=== PATIENT | female | born 1970 | race Caucasian/White ===

== ENCOUNTER 2017-07-23 00:35 | Observation (INO) | payer BC ==
[2017-07-23] MEDS ORDERED: LORAZEPAM 0.5 MG TABLET PO ONE (01:00)
[2017-07-23] MEDS ORDERED: ASPIRIN 325 MG TABLET PO ONE (01:01)
--- NOTE | 2017-07-23 01:08 | Emergency Department Record ---
History of Present Illness - General Chief Complaint: Hypertension Stated Complaint: HIGH BP Time Seen by Provider: 07/23/17 00:44 Source: Patient Mode of Arrival: Ambulatory Limitations: No limitations - History of Present Illness Initial Comments: The patient is here due to not feeling well for a week or so. She has been weak and lightheaded off and on and has noticed her BP at home has been mildly elevated. She also feels like she has had blurred vision off and on and also now some mild chest pressure over the last 2 hours. The patient states she has had similar visual changes in the past and at times her vision does appear blurred and at times she is describing the vision as diplopia. The patient additionally has had a cough for a few days but denies any fever or chills. The chest pressure is mild and is not associated with any shortness of breath, or sweating. The patient does have cardiac risk factors of HTN, DMII, but no tobacco use. MD Complaint: Dizziness Onset/Timin -: Week(s) Description: Lightheadedness, Nausea History of Same: Yes History of Trauma: No Associated Symptoms: Chest pain, Other - Stanislaw Coma Scale Eye Response: (4) Open spontaneously Motor Response: (6) Obeys commands Verbal Response: (5) Oriented Stanislaw Total: 15 - Related Data Allergies Allergy/AdvReac Type Severity Reaction Status Date / Time No Known Allergies Allergy . Verified 07/23/17 00:42 Travel Screening - Travel/Exposure Within Last 30 Days Have you traveled within the last 30 days?: No - Travel Symptoms Symptom Screening: None Review of Systems Constitutional: Denies: Chills, Fever Eyes: Denies: Eye discharge ENT: Reports: Congestion Respiratory: Reports: Cough. Denies: Dyspnea Cardiovascular: Reports: Chest pain. Denies: Arrhythmia Past Medical History - SOCIAL HISTORY Smoking Status: Never smoker Alcohol Use: None Drug Use: None - RESPIRATORY Hx Respiratory Disorders: Yes Hx of CPAP: Yes (in process of checking on this) - CARDIOVASCULAR Hx Cardio Disorders: Yes Hx Hypertension: Yes Hx Palpitations: Yes Hx Pacemaker/Defib: Yes (d/t heart block) Comment:: high cholesterol - NEURO Hx Neuro Disorders: No - GI Hx GI Disorders: No - Hx Genitourinary Disorders: No - ENDOCRINE Hx Endocrine Disorders: Yes Hx Diabetes: Yes - MUSCULOSKELETAL Hx Musculoskeletal Disorders: No - PSYCH Hx Psych Problems: No - HEMATOLOGY/ONCOLOGY Hx Hematology/Oncology Disorders: No Family Medical History Any Significant Family History?: Yes Hx Diabetes: Mother, Grandparents Hx HTN: Mother, Grandparents Physical Exam - General General Appearance: Alert, Oriented x3, Cooperative, No acute distress - Head Head exam: Atraumatic, Normocephalic, Normal inspection - Eye Eye exam: Normal appearance, PERRL, EOMI. negative: Conjunctival injection, Nystagmus - ENT ENT exam: Normal exam, Mucous membranes moist, Normal external ear exam, Normal orophraynx, TM's normal bilaterally Throat exam: Normal inspection. negative: Tonsillar erythema, Tonsillar exudate - Neck Neck exam: Normal inspection, Full ROM. negative: Tenderness - Respiratory Respiratory exam: Normal lung sounds bilaterally, Chest wall tenderness (The L sided CP is very reproducible to palpation.). negative: Respiratory distress - Cardiovascular Cardiovascular Exam: Regular rate, Normal rhythm, Normal heart sounds - GI/Abdominal GI/Abdominal exam: Soft, Normal bowel sounds. negative: Tenderness - Extremities Extremities exam: Normal inspection, Full ROM, Normal capillary refill. negative: Tenderness Image of Full Body: 1 - Area of discomfort and tenderness. - Neurological Neurological exam: Alert, Normal gait (Neg for any balance issues.), Oriented X3 , Other (Neg Drift exam.). negative: Abnormal gait, Altered, Motor sensory deficit Course Vital Signs 07/23/17 00:41 Temperature 98 F Pulse Rate [ 115 H Pulse Ox Probe] Respiratory 20 Rate Blood Pressure 180/104 [Left Arm] Pulse Ox 99 - Reevaluation(s) Reevaluation #1: The patient is doing better. She is still having some chest discomfort which is very reproducible to palpation. Her BP is much improved. 07/23/17 01:56 Reevaluation #2: The patient is doing much better at this time. Her CP has pretty much resolved with the Toradol and she denies any SOB or KERRIE. She is still having the visual changes but denies any arm or leg weakness, numbness, trouble swallowing or speech difficulties. I did explain to her that I am not sure why she is having these issues so I did recommend hospital admission. The patient did agree to the plan. 07/23/17 02:30 Medical Decision Making - Data Complexity MDM Data: Labs Ordered and/or Reviewed, X-Ray Ordered and/or Reviewed, EKG Ordered and/or Reviewed - Lab Data Result diagrams: 07/23/17 01:00 07/23/17 01:00 - EKG Data -: EKG Interpreted by Me EKG: No Acute Changes (Sinus Tach at 103. Neg ST-T changes.) - Radiology Data Radiology results: Report reviewed (Head CT: Neg), Image reviewed (CXR: Neg.) Disposition Disposition: Admit Clinical Impression: Diplopia Chest pain Qualifiers: Chest pain type: unspecified Qualified Code(s): R07.9 - Chest pain, unspecified Disposition: Still a Patient at [facility] Decision to Admit: Admit from ER Decision to Admit Date: 07/23/17 Decision to Admit Time: 02:35 Accepting Physician: Noemí Time Discussed w/Accepting Physician: 02:35 Condition: (2) Stable Instructions: Hypertension (ED) Forms: Patient Portal Access Time of Disposition: 02:35 Quality - Quality Measures Quality Measures: N/A - Blood Pressure Screening View Details: Yes Does Patient Have Any of the Following: No, Active Dx of HTN Blood Pressure Classification: Hypertensive Reading Systolic Measurement: 141 Diastolic Measurement: 76 Screening for High Blood Pressure: Patient Exclusion, Hx of HTN [G9744]
[2017-07-23 01:11] LABS: BASO % 0.5 % (0-6); EOS % 2.8 % (0-6); GRAN % 53.5 % (47-80); HEMATOCRIT 40.2 % (35.0-47.0); HEMOGLOBIN 14.4 gm/dl (11.6-16.0); LYMPH % 35.5 % (16-45); MEAN CORPUSCULAR HEMOGLOBIN 30.4 pg (27-33); MEAN CORPUSCULAR HGB CONC 35.8 g/dl (32-36); MEAN PLATELET VOLUME 10.6 fl (7.4-10.4); MONO % 7.7 % (0-9); PLATELET COUNT 273 K/uL (130-400); RED BLOOD COUNT 4.73 M/uL (3.80-5.40); RED CELL DISTRIBUTION WIDTH 13.1 % (11.5-14.5); WHITE BLOOD COUNT W/O DIFF 7.8 K/uL (4.2-12.2)
[2017-07-23 01:31] LABS: BLOOD UREA NITROGEN 14 mg/dL (6-20); CREATININE 0.7 mg/dL (0.5-0.9); EST GLOMERULAR FILTRATION RATE > 60 mL/min; GLUCOSE,RANDOM 230 mg/dL (74-109)
[2017-07-23] MEDS ORDERED: KETOROLAC 30 MG/ML VIAL IVP ONE (01:41)
[2017-07-23 01:50] LABS: CKMB 1.2 ng/mL (<3.77)
[2017-07-23 02:01] LABS: CREATINE PHOSPHOKINASE 58 U/L (26-192)
[2017-07-23] MEDS ORDERED: ACETAMINOPHEN 325 MG TAB PO ONE (02:33)
[2017-07-23] MEDS ORDERED: DOXYCYCLINE HYCLATE 100 MG CAPSULE PO ONE ×2 (02:34→15:28)
[2017-07-23] MEDS ORDERED: ATORVASTATIN 20 MG TABLET PO SCH (02:47)
[2017-07-23] MEDS ORDERED: ACETAMINOPHEN 500 MG TABLET PO PRN ×2 (02:47→13:40)
[2017-07-23] MEDS ORDERED: LISINOPRIL 20 MG TABLET PO SCH (02:47)
[2017-07-23] MEDS ORDERED: METFORMIN 500 MG TABLET PO SCH (08:00)
[2017-07-23 09:45] LABS: CKMB < 1.0 ng/mL (<3.77)
[2017-07-23] MEDS ORDERED: DOXYCYCLINE HYCLATE 100 MG CAPSULE PO SCH (10:00)
[2017-07-23] MEDS ORDERED: ASPIRIN 325 MG TAB ENTERIC-COATED PO SCH (10:00)
--- NOTE | 2017-07-23 15:22 | Discharge Note ---
VTE H&P Assessment - Risk for VTE Risk for VTE: No Risk Level: Very Low Risk Assessment Date: 07/23/17 Risk Assessment Time: 15:30 VTE Orders Placed or Will Be Placed: No VTE Reason for No Prophylaxis: Not Indicated Discharge Medications - Discharge Medications Prescriptions: Doxycycline Hyclate [Vibramycin] 100 mg PO BID #20 capsule Home Medications: Ambulatory Orders Doxycycline Hyclate [Vibramycin] 100 mg PO BID #20 capsule 07/23/17 [Last Taken Unknown] Discharge Note - Date Date of Discharge Note: 07/23/17 Disposition: Home, Self-Care Condition: (2) Stable Instructions: Hypertension (ED) Additional Instructions: follow up with Carola Lucio in 5-10 days take doxy 100 mg twice a day Referrals: Carola Weaver, P.A. [Primary Care Provider] - Forms: Patient Portal Access
--- NOTE | 2017-07-24 06:47 | RADIOLOGY REPORT ---
EXAM: CHEST 2 VIEWS HISTORY: LEFT-SIDED CHEST PAIN AND ELEVATED BLOOD PRESSURE. TECHNIQUE: PA and lateral upright views of the chest were obtained. COMPARISON: None. FINDINGS: A pacemaker is present. The heart, mediastinum, and pulmonary vasculature are normal. The lungs are clear. There is no pneumothorax or effusion. The bones appear intact. IMPRESSION: NO ACUTE CHEST PATHOLOGY. JOB NUMBER: [id number] MTDD
--- NOTE | 2017-07-24 06:49 | CT SCAN REPORT ---
EXAM: CT SCAN HEAD WO CONTRAST HISTORY: HEADACHE WITH HIGH BLOOD PRESSURE AND BLURRED VISION. TECHNIQUE: Standard CT imaging of the brain was performed in the axial plane without contrast. Additional coronal and sagittal reformatted images were also performed. COMPARISON: None. FINDINGS: The ventricles and subarachnoid spaces are normal. There is no mass, mass effect, intracranial hemorrhage, visible acute infarct, or abnormal extra- axial fluid. The skull is intact. The orbits, sinuses, and mastoids are normal. IMPRESSION: NEGATIVE HEAD CT. [facility]: [id number] [facility]
--- NOTE | 2017-07-24 11:50 | History and Physical Report ---
DATE OF ADMISSION: CHIEF COMPLAINT/HISTORY OF CHIEF COMPLAINT: Dizziness, double vision, chest pain, cough which started about 2 or 3 days ago. She also had some diarrhea 2 days ago. She came into the emergency department and was evaluated by Dr. Lucas. She was admitted to the hospital for serial cardiac enzymes; started on doxycycline 100 mg b.i.d. and further evaluation. She had a CAT scan of her head, which was negative and a chest x-ray which was negative. Cardiac enzymes x 2 were negative. EKG showed normal sinus rhythm with no acute changes but the tachycardia. The patient is moving around the room well. She states her double vision is where the vision is just kind of like there is a little shadow around the one part of the eye; not a true double vision. When she closes one or the other eye, it stays the same, might be slightly worse in the left eye. She had seen Dr. Brown in the past for her diabetes and check-up of the retina. She denies a fever or chills with her cough. The chest pressure is mild and not associated with shortness of breath or sweating. The patient does have some cardiac risk factors, hypertension, diabetes, but no tobacco use. PAST MEDICAL HISTORY: Diabetes mellitus type 2, hypertension, recently had her Lisinopril adjusted about 2 weeks ago, and hypercholesterolemia. Overweight. PAST SURGICAL HISTORY: Tubal ligation, T&A, cardiac ablation for her rapid SVT. MEDICATIONS ON ADMISSION: 1. Metformin 1,000 mg b.i.d. 2. Lisinopril 40 mg daily. 3. Lipitor 20 mg daily. 4. Doxycycline 100 mg b.i.d. She was started on that in the emergency department by Dr. Lucas for bronchitis; one dose last night and one dose this morning. ALLERGIES: No known allergies. FAMILY PSYCHOSOCIAL HISTORY: Mother, grandparents have diabetes. Mother and grandparents have hypertension. She has never smoked. No alcohol or drug use. REVIEW OF SYSTEMS: HEENT: She has got congestion. She has not really a sore throat, but she has a dry cough. It's been going on for about a week. CARDIOVASCULAR: No chest pain at this time, but yesterday in the emergency department she had pain, which was relieved by Toradol and it was more of a musculoskeletal-type pain. RESPIRATORY: She had a cough, see chief complaint. No smoking history, no emphysema history. GENITOURINARY: No dysuria, hematuria, or frequency, or burning on urination. MUSCULOSKELETAL: No joint or bone abnormalities. NEUROLOGIC: No CVA paralysis or paresthesias. GYNECOLOGIC: No vaginal bleeding or abnormal lumps in her breast. ENDOCRINE: She does have diabetes mellitus, but no hypothyroidism. INTEGUMENT: No rash, ulcer, change in moles, or yellow skin. PHYSICAL EXAMINATION: VITAL SIGNS: Height is 5 feet 9 inches, weight is 288 pounds. Temperature is 98.6, pulse is 104, blood pressure is 147/83, respiratory rate is 16, pulse ox is 96% on room air. HEENT: Pupils are equal, round, and reactive to light and accomodation. Extraocular muscles intact. Throat is clear. Nose is clear. Tympanic membranes are hicks. When she is checking for double vision, she has a little silhouette on my finger, not a true double vision, and it is similar with either eye patched, a little more pronounced, she said, on the left side. NECK: Supple. No jugular venous distention, no hepatojugular reflux, no carotid bruits. Thyroid is smooth. CARDIOVASCULAR: Regular rate and rhythm without murmurs, clicks, rubs, or gallops. RESPIRATORY: Clear to auscultation. Breath sounds are equal bilaterally. ABDOMEN: Soft and nontender, no hepatosplenomegaly, no masses, no tenderness. Bowel sounds are active. No bruits. EXTREMITIES: No pitting edema, no cyanosis, no clubbing. Full range of motion, peripheral pulses are good. BREASTS: Deferred. GYNECOLOGIC: Deferred. RECTAL: Deferred. NEUROLOGIC: Cranial nerves 2 through 12 intact. No gross defects. Sensation normal, strength normal, deep tendon reflexes equal bilaterally. Babinski's is negative. MENTAL STATUS: Alert and oriented x 3. IMPRESSION: 1. Acute bronchitis. 2. Hypertension. 3. Diabetes mellitus type 2. 4. Hypercholesterolemia. 5. Diplopia, she has seen Dr. Brown in the past, we will have her follow up with Dr. Brown for a definitive diagnosis of this. PLAN: At this point, she is safe to be discharged, we will continue her doxycycline twice a day 100 mg, and follow up with Carola Weaver in 5 to 10 days. FRANDYD
--- NOTE | 2017-07-24 12:31 | Discharge Summary ---
DATE OF ADMISSION: Attending physician: Carl Cardoza, DO DISCHARGE DIAGNOSES: 1. Acute bronchitis. 2. Hypertension. 3. Diabetes mellitus type 2. 4. Hypercholesterolemia. 5. Diplopia versus slight blurring of vision. I will have her follow up with Dr. Hernandez for a consult. REASON FOR HOSPITALIZATION: Dizziness, cough, congestion, chest pain, worse with coughing, diarrhea 2 days prior, visual abnormality, a halo around her vision of things, more on the left than the right eye. She was seen in the emergency department by Dr. Lucas and admitted to the hospital. CT of the head was negative, by virtual reading. EKG showing normal sinus rhythm, no acute changes. Chest x-ray was negative. Cardiac enzymes negative x 2. EKG normal sinus rhythm, no acute changes. The patient was admitted to the hospital for serial cardiac enzymes and observation, started on doxycycline 100 mg twice a day. SIGNIFICANT FINDINGS: As stated above; chest x-ray negative, CT of the head negative, cardiac enzymes negative, EKG negative. THERAPY PROVIDED: The patient was observed and started on doxycycline 100 mg b.i.d. for her bronchitis and dry cough. HOSPITAL COURSE: Improved. She was sleeping when I walked in the room. She felt much better, slight headache. CONDITION ON DISCHARGE: Much improved. DISCHARGE INSTRUCTIONS: 1. Follow up with Carola Weaver in 5 to 10 days, follow up with Dr. Hernandez, powder mill operator, to check out the double vision more completely and make a definitive diagnosis. 2. Use doxycycline 100 mg b.i.d., and continue her home medications. [facility]
== END 2017-07-23 16:19 | disposition home or self-care (01) ==
LOC: ER 00:35 → MEDSURG 02:42
PROVIDERS: ADMIT Internal Medicine; ATTEND Internal Medicine
DX: J20.9 Acute bronchitis, unspecified (principal); I10 Essential (primary) hypertension; E11.9 Type 2 diabetes mellitus without complications; E78.00 Pure hypercholesterolemia, unspecified; H53.2 Diplopia; R07.9 Chest pain, unspecified
CPT/HCPCS: 70450; 71020; 80048; 82550; 82553; 84484; 85025; 93005; 93010; 96374; 99285; J1885

== ENCOUNTER 2017-11-20 18:32 | Emergency (ER) | payer BC ==
--- NOTE | 2017-11-20 18:58 | Emergency Department Record ---
History of Present Illness - General Chief complaint: Pain Stated complaint: CHEST PAIN Time Seen by Provider: 11/20/17 18:39 Source: Patient Mode of Arrival: Ambulatory Limitations: No limitations - History of Present Illness Initial comments: pt has had r sided cp since last night that is constant and nonreproducible. at time she will get a sharp stabbing pain across to the left side. she is sob. the pain is in the area of her pacer. it gets worse w inspiration. she has never had anything like this before. she has no leg pain. she had influenza b 2 wks ago. pt recently had her pacer tested Complaint: Other Onset/Timin -: Days(s) Location: Right, Other Severity scale (1-10): 5 Quality: Aching, Sharp Consistency: Constant, Intermittent Improves with: Nothing Worsens with: Nothing Associated Symptoms: Denies other symptoms - Related Data Allergies Allergy/AdvReac Type Severity Reaction Status Date / Time No Known Allergies Allergy . Unverified 11/08/17 13:58 Travel Screening - Travel/Exposure Within Last 30 Days Have you traveled within the last 30 days?: No Review of Systems Reviewed: No additional complaints except as noted below Constitutional: Reports: As per HPI. Denies: Chills, Fever, Malaise, Night sweats, Weakness, Weight change Eyes: Reports: As per HPI. Denies: Eye discharge, Eye pain, Photophobia, Vision change ENT: Reports: As per HPI. Denies: Congestion, Dental pain, Ear pain, Epistaxis , Hearing loss, Throat pain Respiratory: Reports: As per HPI, Cough, Dyspnea. Denies: Hemoptysis, Stridor, Wheezes Cardiovascular: Reports: As per HPI, Chest pain. Denies: Arrhythmia, Dyspnea on exertion, Edema, Murmurs, Orthopnea, Palpitations, Paroxysmal nocturnal dyspnea, Rheumatic Fever, Syncope Endocrine: Reports: As per HPI. Denies: Fatigue, Heat or cold intolerance, Polydipsia, Polyuria Gastrointestinal: Reports: As per HPI. Denies: Abdominal pain, Constipation, Diarrhea, Hematemesis, Hematochezia, Melena, Nausea, Vomiting Genitourinary: Reports: As per HPI. Denies: Abnormal menses, Discharge, Dyspareunia, Dysuria, Frequency, Hematuria, Incontinence, Retention, Urgency Musculoskeletal: Reports: As per HPI. Denies: Arthralgia, Back pain, Gout, Joint swelling, Myalgia, Neck pain Skin: Reports: As per HPI. Denies: Bruising, Change in color, Change in hair/ nails, Lesions, Pruritus, Rash Neurological: Reports: As per HPI. Denies: Abnormal gait, Confusion, Headache, Numbness, Paresthesias, Seizure, Tingling, Tremors, Vertigo, Weakness Psychiatric: Reports: As per HPI. Denies: Anxiety, Auditory hallucinations, Depression, Homicidal thoughts, Suicidal thoughts, Visual hallucinations Hematological/Lymphatic: Reports: As per HPI. Denies: Anemia, Blood Clots, Easy bleeding, Easy bruising, Swollen glands Past Medical History - SOCIAL HISTORY Smoking Status: Never smoker Alcohol Use: None Drug Use: None - RESPIRATORY Hx Respiratory Disorders: Yes Hx of CPAP: Yes (in process of checking on this) - CARDIOVASCULAR Hx Cardio Disorders: Yes Hx Abnormal EKG: Yes Hx Cardiac Cath: Yes Hx Chest Pain: Yes Hx CHF: No Hx Hypertension: Yes Hx Palpitations: Yes Hx Pacemaker/Defib: Yes (d/t heart block) Comment:: high cholesterol - NEURO Hx Neuro Disorders: No - GI Hx GI Disorders: No - Hx Genitourinary Disorders: No - ENDOCRINE Hx Endocrine Disorders: Yes Hx Diabetes: Yes - MUSCULOSKELETAL Hx Musculoskeletal Disorders: No - PSYCH Hx Psych Problems: No - HEMATOLOGY/ONCOLOGY Hx Hematology/Oncology Disorders: No Family Medical History Any Significant Family History?: Yes Hx Diabetes: Mother, Grandparents Hx HTN: Mother, Grandparents Physical Exam - General General Appearance: Alert, Oriented x3, Cooperative, Mild distress - Head Head exam: Normal inspection - Eye Eye exam: Normal appearance, PERRL, EOMI Pupils: Normal accommodation - ENT ENT exam: Normal exam, Mucous membranes moist, Normal external ear exam, Normal orophraynx Ear exam: Normal external inspection. negative: External canal tenderness Nasal Exam: Normal inspection. negative: Discharge, Sinus tenderness Mouth exam: Normal external inspection, Tongue normal Teeth exam: Normal inspection. negative: Dental caries Throat exam: Normal inspection. negative: Tonsillar erythema, Tonsillar exudate - Neck Neck exam: Normal inspection, Full ROM. negative: Tenderness - Respiratory Respiratory exam: Normal lung sounds bilaterally. negative: Respiratory distress - Cardiovascular Cardiovascular Exam: Normal rhythm, Normal heart sounds, Tachycardia, Other ( pacer in place on right) - GI/Abdominal GI/Abdominal exam: Soft, Normal bowel sounds. negative: Tenderness - Rectal Rectal exam: Deferred - exam: Deferred - Extremities Extremities exam: Normal inspection, Full ROM, Normal capillary refill. negative: Tenderness - Back Back exam: Reports: Normal inspection, Full ROM. Denies: Muscle spasm, Rash noted, Tenderness - Neurological Neurological exam: Alert, CN II-XII intact, Normal gait, Oriented X3 - Psychiatric Psychiatric exam: Normal affect, Normal mood - Skin Skin exam: Dry, Intact, Normal color, Warm Course Vital Signs 11/20/17 11/20/17 18:45 18:52 Temperature 98.4 F Pulse Rate 104 H Respiratory 20 Rate Blood Pressure 181/95 Pulse Ox 99 - Reevaluation(s) Reevaluation #1: 11/20/17 23:29 pt has had 2 neg troponins. unlikely to be cad. pt advised to have pacer checked Medical Decision Making - Lab Data Result diagrams: 11/20/17 19:05 11/20/17 19:05 Disposition Disposition: Discharge Clinical Impression: Chest pain Qualifiers: Chest pain type: unspecified Qualified Code(s): R07.9 - Chest pain, unspecified Disposition: Home, Self-Care Condition: (1) Good Instructions: Chest Pain (ED) Additional Instructions: follow up with community health educator tomorrow for further evaluation and assessment of pacer. return sooner if worse Forms: Patient Portal Access Quality - Quality Measures Quality Measures: N/A - Blood Pressure Screening Does Patient Have Any of the Following: Active Dx of HTN Blood Pressure Classification: Hypertensive Reading Systolic Measurement: 181 Diastolic Measurement: 95 Screening for High Blood Pressure: Patient Exclusion, Hx of HTN [G9744]
[2017-11-20] MEDS: ASPIRIN 81 MG CHEWABLE TABLET PO ONE (19:11)
[2017-11-20 19:15] LABS: BASO % 0.3 % (0-6); GRAN % 53.6 % (47-80); HEMATOCRIT 41.7 % (35.0-47.0); HEMOGLOBIN 14.5 gm/dl (11.6-16.0); LYMPH % 36.4 % (16-45); MEAN CELL VOLUME 86.3 fl (81-97); MEAN CORPUSCULAR HGB CONC 34.8 g/dl (32-36); MEAN PLATELET VOLUME 10.2 fl (7.4-10.4); MONO % 6.7 % (0-9); PLATELET COUNT 285 K/uL (130-400); RED BLOOD COUNT 4.83 M/uL (3.80-5.40); WHITE BLOOD COUNT W/O DIFF 6.7 K/uL (4.2-12.2)
[2017-11-20 19:26] LABS: BLOOD UREA NITROGEN 10 mg/dL (6-20); CREATININE 0.6 mg/dL (0.5-0.9); EST GLOMERULAR FILTRATION RATE > 60 mL/min
[2017-11-20 19:28] LABS: GLUCOSE,RANDOM 280 mg/dL (74-109)
[2017-11-20 19:31] LABS: CREATINE PHOSPHOKINASE 47 U/L (26-192)
[2017-11-20 19:33] LABS: CKMB 1.4 ng/mL (<3.77)
[2017-11-20] MEDS: KETOROLAC 30 MG/ML VIAL IVP ONE (20:42)
--- NOTE | 2017-11-21 10:27 | CT ANGIOGRAM REPORT ---
EXAM: CTA OF THE CHEST WITH CONTRAST HISTORY: DIFFICULTY BREATHING. TECHNIQUE: CTA of the chest was performed after intravenous administration of 80 ml of Omnipaque 350 contrast material. Sagittal and coronal MIP images were performed on an independent workstation. FINDINGS: No mass or filling defect to suggest pulmonary embolism. The heart and pericardium appears normal. No mediastinal or hilar lymphadenopathy. No pericardial effusion. The lung hough are clear. No infiltrate or pleural effusion. There is fatty infiltration of the liver. There is cholelithiasis. IMPRESSION: 1. NO CTA FINDINGS SUGGESTIVE OF PULMONARY EMBOLISM. NO PERICARDIAL EFFUSION. 2. NO INFILTRATE OR PLEURAL EFFUSION. 3. CHOLELITHIASIS WITHOUT DUCTAL DILATATION. [facility]BER: [id number] [facility]
== END 2017-11-20 23:41 | disposition home or self-care (01) ==
LOC: ER 18:32
DX: R07.9 Chest pain, unspecified (principal); R05 Cough; R06.02 Shortness of breath; I10 Essential (primary) hypertension; Z95.0 Presence of cardiac pacemaker
CPT/HCPCS: 71275; 80048; 82550; 82553; 84484; 85025; 93005; 93010; 96374; 99284; J1885

== ENCOUNTER 2018-06-08 08:38 | Emergency (ER) | payer BC ==
--- NOTE | 2018-06-08 08:59 | Emergency Department Record ---
History of Present Illness - General Chief Complaint: Chest Pain Stated Complaint: CHEST PRESSURE Time Seen by Provider: 06/08/18 08:56 Source: Patient, RN notes reviewed Mode of Arrival: Ambulatory - History of Present Illness Initial Comments: patient wake up with heart racing and it lasted for 3 minutes and than another episode at 5 am which lasted less than a minute and she deies chest pain but has some chest pressure. PMH history of SVT and pacemaker placed at 20 years of age and followed by [facility] and pacemaker checks have been good. [facility]CP [facility]. 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 DM type 2, hypertension . patient said she just finished her second course of antibiotics because of a cough. first antibiotic z juan and second antibiotic finished yesterday and she doesn't know the name. Onset/Timin -: Hour(s) Pain Location: Substernal Severity: Mild Quality: Aching, Dull - Related Data Allergies Allergy/AdvReac Type Severity Reaction Status Date / Time No Known Allergies Allergy . Verified 06/08/18 08:49 Travel Screening - Travel/Exposure Within Last 30 Days Have you traveled within the last 30 days?: No - Travel/Exposure Within Last Year Have you traveled outside the [place] in the last year?: No - Additonal Travel Details Have you been exposed to anyone with a communicable illness?: No - Travel Symptoms Symptom Screening: None Review of Systems Reviewed: No additional complaints except as noted below Constitutional: Reports: As per HPI. Denies: Chills, Fever, Malaise, Night sweats, Weakness, Weight change Eyes: Reports: As per HPI. Denies: Eye discharge, Eye pain, Photophobia, Vision change ENT: Reports: As per HPI. Denies: Congestion, Dental pain, Ear pain, Epistaxis , Hearing loss, Throat pain Respiratory: Reports: As per HPI. Denies: Cough, Dyspnea, Hemoptysis, Stridor, Wheezes Cardiovascular: Reports: As per HPI, Chest pain, Palpitations. Denies: Arrhythmia, Dyspnea on exertion, Edema, Murmurs, Orthopnea, Paroxysmal nocturnal dyspnea, Rheumatic Fever, Syncope Endocrine: Reports: As per HPI. Denies: Fatigue, Heat or cold intolerance, Polydipsia, Polyuria Gastrointestinal: Reports: As per HPI. Denies: Abdominal pain, Constipation, Diarrhea, Hematemesis, Hematochezia, Melena, Nausea, Vomiting Genitourinary: Reports: As per HPI. Denies: Abnormal menses, Discharge, Dyspareunia, Dysuria, Frequency, Hematuria, Incontinence, Retention, Urgency Musculoskeletal: Reports: As per HPI. Denies: Arthralgia, Back pain, Gout, Joint swelling, Myalgia, Neck pain Skin: Reports: As per HPI. Denies: Bruising, Change in color, Change in hair/ nails, Lesions, Pruritus, Rash Neurological: Reports: As per HPI. Denies: Abnormal gait, Confusion, Headache, Numbness, Paresthesias, Seizure, Tingling, Tremors, Vertigo, Weakness Psychiatric: Reports: As per HPI. Denies: Anxiety, Auditory hallucinations, Depression, Homicidal thoughts, Suicidal thoughts, Visual hallucinations Hematological/Lymphatic: Reports: As per HPI. Denies: Anemia, Blood Clots, Easy bleeding, Easy bruising, Swollen glands Past Medical History - SOCIAL HISTORY Smoking Status: Never smoker Alcohol Use: None Drug Use: None - RESPIRATORY Hx Respiratory Disorders: Yes Hx of CPAP: Yes (in process of checking on this) - CARDIOVASCULAR Hx Cardio Disorders: Yes Hx Abnormal EKG: Yes Hx Cardiac Cath: Yes Hx Chest Pain: Yes Hx CHF: No Hx Hypertension: Yes Hx Palpitations: Yes Hx Pacemaker/Defib: Yes (d/t heart block) Comment:: high cholesterol - NEURO Hx Neuro Disorders: No - GI Hx GI Disorders: No - Hx Genitourinary Disorders: No - ENDOCRINE Hx Endocrine Disorders: Yes Hx Diabetes: Yes Hx Thyroid Disease: No - MUSCULOSKELETAL Hx Musculoskeletal Disorders: No - PSYCH Hx Psych Problems: No - HEMATOLOGY/ONCOLOGY Hx Hematology/Oncology Disorders: No Family Medical History Any Significant Family History?: Yes Hx Diabetes: Mother, Grandparents Hx HTN: Mother, Grandparents Physical Exam - General General Appearance: Alert, Oriented x3, Cooperative, Mild distress - Head Head exam: Normal inspection - Eye Eye exam: Normal appearance, PERRL Pupils: Normal accommodation - ENT ENT exam: Normal exam, Mucous membranes moist, Normal external ear exam, Normal orophraynx, TM's normal bilaterally Ear exam: Normal external inspection. negative: External canal tenderness Nasal Exam: Normal inspection. negative: Discharge, Sinus tenderness Mouth exam: Normal external inspection, Tongue normal Teeth exam: Normal inspection. negative: Dental caries Throat exam: Normal inspection. negative: Tonsillar erythema, Tonsillar exudate - Neck Neck exam: Normal inspection, Full ROM. negative: Tenderness - Respiratory Respiratory exam: Normal lung sounds bilaterally. negative: Respiratory distress - Cardiovascular Cardiovascular Exam: Regular rate, Normal rhythm, Normal heart sounds - GI/Abdominal GI/Abdominal exam: Soft, Normal bowel sounds. negative: Tenderness - Rectal Rectal exam: Deferred - exam: Deferred - Extremities Extremities exam: Normal inspection, Full ROM, Normal capillary refill. negative: Tenderness - Back Back exam: Reports: Normal inspection, Full ROM. Denies: Muscle spasm, Rash noted, Tenderness - Neurological Neurological exam: Alert, Normal gait, Oriented X3, Reflexes normal - Psychiatric Psychiatric exam: Normal affect, Normal mood - Skin Skin exam: Dry, Intact, Normal color, Warm Course Vital Signs 06/08/18 08:40 Temperature 98.1 F Pulse Rate 98 H Respiratory 20 Rate Blood Pressure 177/95 Pulse Ox 99 - Reevaluation(s) Reevaluation #1: discussed case with Dr. Christianson and will discharge and want her to follow up with Dr. Christianson and they will interogate the pacemaker 06/08/18 12:58 Medical Decision Making - Data Complexity MDM Data: Labs Ordered and/or Reviewed, X-Ray Ordered and/or Reviewed (chest negative with pacemaker), EKG Ordered and/or Reviewed (NSR, 1 degree av block, No acute changes and similiar to previous on 11/20/2017) - Lab Data Result diagrams: 06/08/18 08:55 06/08/18 08:55 Disposition Clinical Impression: Heart palpitations Disposition: Home, Self-Care Condition: (1) Good Instructions: Heart Palpitations (ED) Additional Instructions: follow up with Dr. CHRISTIANSON next so the pacemaker can be interogated and if more problems go to [facility] ED. Forms: Patient Portal Access Time of Disposition: 13:00 Quality - Quality Measures Quality Measures: N/A - Blood Pressure Screening Does Patient Have Any of the Following: No, Active Dx of HTN Blood Pressure Classification: Hypertensive Reading Systolic Measurement: 177 Diastolic Measurement: 95 Screening for High Blood Pressure: Patient Exclusion, Hx of HTN [G9744]
[2018-06-08 09:15] LABS: BASO % 0.4 % (0-6); EOS % 1.8 % (0-6); GRAN % 63.9 % (47-80); HEMATOCRIT 41.2 % (35.0-47.0); HEMOGLOBIN 14.3 gm/dl (11.6-16.0); MEAN CELL VOLUME 85.3 fl (81-97); MEAN CORPUSCULAR HEMOGLOBIN 29.6 pg (27-33); MEAN CORPUSCULAR HGB CONC 34.7 g/dl (32-36); MEAN PLATELET VOLUME 10.1 fl (7.4-10.4); MONO % 6.9 % (0-9); PLATELET COUNT 272 K/uL (130-400); RED BLOOD COUNT 4.83 M/uL (3.80-5.40); RED CELL DISTRIBUTION WIDTH 13.1 % (11.5-14.5); WHITE BLOOD COUNT W/O DIFF 7.6 K/uL (4.2-12.2)
[2018-06-08] MEDS: ASPIRIN 81 MG CHEWABLE TABLET PO ONE (09:16)
[2018-06-08 09:25] LABS: BLOOD UREA NITROGEN 8 mg/dL (6-20); CREATININE 0.8 mg/dL (0.5-0.9); EST GLOMERULAR FILTRATION RATE > 60 mL/min
[2018-06-08 09:28] LABS: GLUCOSE,RANDOM 192 mg/dL (74-109)
[2018-06-08 09:40] LABS: THYROID STIMULATING HORMONE 2.43 uIU/mL (0.270-4.20)
--- NOTE | 2018-06-10 08:38 | RADIOLOGY REPORT ---
EXAM: CHEST, TWO VIEWS HISTORY: LEFT SIDED CHEST PRESSURE. TECHNIQUE: PA and lateral views of the chest were obtained. Comparison: 05/28/18. FINDINGS: Right sided cardiac pacemaker with dual lead in similar position. The cardiomediastinal silhouette is normal in size. The pulmonary vasculature is non-congested. No focal consolidation, pleural effusion, or pneumothorax is seen. IMPRESSION: NO ACUTE CARDIOPULMONARY PROCESS. JOB NUMBER: [id number] MTDD
== END 2018-06-08 13:11 | disposition home or self-care (01) ==
LOC: ER 08:38
DX: R00.2 Palpitations (principal); R07.89 Other chest pain; I10 Essential (primary) hypertension; E11.9 Type 2 diabetes mellitus without complications; Z79.84 Long term (current) use of oral hypoglycemic drugs; Z95.0 Presence of cardiac pacemaker
CPT/HCPCS: 71046; 80048; 84443; 84484; 85025; 85730; 93005; 93010; 99284

== ENCOUNTER 2019-06-05 01:43 | Emergency (ER) | payer BC ==
[2019-06-05] MEDS ORDERED: 0.9 % SODIUM CHLORIDE 1,000 ML BAG IV ONE (01:52)
--- NOTE | 2019-06-05 01:58 | Emergency Department Record ---
History of Present Illness - General Chief complaint: Hypergylcemia Stated complaint: HIGH BLOOD SUGAR Time Seen by Provider: 06/05/19 01:52 Source: Patient Mode of Arrival: Ambulatory Limitations: No limitations - History of Present Illness Initial comments: 49 yo female presents with elevated blood sugar level. She reports her blood sugar normally upper 100' to 200. She got a cortisone shot today. Her blood sugar was 510. She has a sweet taste in her mouth. No headache, dizziness, nausea or vomiting. She was told by her orthopedic doctor she could take an extra dose of metformin. She did not. PCP is Suzette Evans NP of [facility]. Her hip is feeling much improved since the cortisone shot. She reports she checks her sugars every few days. The highest in the last week was 210. -: Hour(s) Location: Generalized Quality: Other (No pain) Consistency: Constant Improves with: None Worsens with: Other (Increased sugar after cortisone) - Related Data Allergies Allergy/AdvReac Type Severity Reaction Status Date / Time No Known Allergies Allergy . Unverified 05/15/19 16:59 Review of Systems Constitutional: Denies: Chills, Fever, Malaise, Weakness Eyes: Denies: Eye discharge ENT: Denies: Congestion, Throat pain Respiratory: Denies: Cough, Dyspnea Cardiovascular: Denies: Chest pain, Syncope Endocrine: Denies: Fatigue Gastrointestinal: Denies: Abdominal pain, Diarrhea, Nausea, Vomiting Genitourinary: Denies: Dysuria, Frequency, Urgency Musculoskeletal: Reports: As per HPI, Arthralgia. Denies: Back pain, Neck pain Skin: Denies: Bruising, Change in color, Rash Neurological: Denies: Headache, Numbness, Tingling Psychiatric: Denies: Anxiety Hematological/Lymphatic: Denies: Easy bleeding, Easy bruising Past Medical History - SOCIAL HISTORY Smoking Status: Never smoker Drug Use: None - RESPIRATORY Hx Respiratory Disorders: Yes Hx of CPAP: Yes (in process of checking on this) - CARDIOVASCULAR Hx Cardio Disorders: Yes Hx Abnormal EKG: Yes Hx Cardiac Cath: Yes Hx Chest Pain: Yes Hx CHF: No Hx Hypertension: Yes Hx Palpitations: Yes Hx Pacemaker/Defib: Yes (d/t heart block) Comment:: high cholesterol - NEURO Hx Neuro Disorders: No - GI Hx GI Disorders: No - Hx Genitourinary Disorders: No - ENDOCRINE Hx Endocrine Disorders: Yes Hx Diabetes: Yes Hx Thyroid Disease: No - MUSCULOSKELETAL Hx Musculoskeletal Disorders: No - PSYCH Hx Psych Problems: No - HEMATOLOGY/ONCOLOGY Hx Hematology/Oncology Disorders: No Family Medical History Hx Diabetes: Mother, Grandparents Hx HTN: Mother, Grandparents Physical Exam - General General Appearance: Alert, Oriented x3, Cooperative, No acute distress Limitations: No limitations - Head Head exam: Atraumatic, Normal inspection - Eye Eye exam: Normal appearance. negative: Conjunctival injection - ENT ENT exam: Normal exam, Mucous membranes moist Ear exam: Normal external inspection Nasal Exam: Normal inspection Mouth exam: Normal external inspection - Neck Neck exam: Normal inspection - Respiratory Respiratory exam: Normal lung sounds bilaterally. negative: Rhonchi, Stridor, Wheezes - Cardiovascular Cardiovascular Exam: Normal rhythm, Normal heart sounds. negative: Regular rate Peripheral Pulses: 2+: Radial (R), Radial (L) - Neurological Neurological exam: Alert, Oriented X3. negative: Motor sensory deficit - Psychiatric Psychiatric exam: Normal affect, Normal mood - Skin Skin exam: Dry, Intact, Normal color, Warm Course Vital Signs 06/05/19 01:49 Temperature 98.6 F Pulse Rate [ 121 H Left] Respiratory 16 Rate Blood Pressure 172/104 [Left Arm] Pulse Ox 98 - Reevaluation(s) Reevaluation #1: 06/05/19 02:00 EMR reviewed Last A1C was October 2018. 10.4 06/05/19 02:37 Venous pH is 7.46. No acidosis. 06/05/19 02:44 A1C is 7.8 06/05/19 02:50 Acetone is negative 06/05/19 03:01 The K is 4.7 Glucose is 449 Normal renal function The RN had difficulty to establish an IV. She is not having any nausea or vomiting. She was encourage to orally hydrate. Insulin SQ ordered. 06/05/19 04:20 We discussed dosage changes of her Glipizide and Metformin the next 2-3 days after the cortisone shot We discussed checking her sugars more often, reasons to be seen immediately and close follow up with her PCP 06/05/19 04:58 Medical Decision Making - Lab Data Result diagrams: 06/05/19 02:00 Disposition Disposition: Discharge Clinical Impression: Hyperglycemia Disposition: Home, Self-Care Condition: (1) Good Instructions: Diabetic Hyperglycemia (ED) Additional Instructions: Review this ER visit and the tests performed with your family doctor Call your doctor for the next available follow up appointment Return to the ER for a recheck if worse, any new concerns or questions Increase your Glipizide to 10mg twice daily for the next 2-3 days until your sugars become more consistent Forms: Patient Portal Access Time of Disposition: 04:17 Quality - Quality Measures Quality Measures: N/A - Blood Pressure Screening Does Patient Have Any of the Following: No Blood Pressure Classification: Pre-Hypertensive BP Reading Systolic Measurement: 147 Diastolic Measurement: 80 Screening for High Blood Pressure: < Pre-Hypertensive BP, F/U Documented > [G8950] Pre-Hypertensive Follow-up Interventions: Referral to alternative/primary care provider.
[2019-06-05 02:43] LABS: ACETONE,SERUM NEGATIVE (NEGATIVE)
[2019-06-05 02:55] LABS: BLOOD UREA NITROGEN 22 mg/dL (6-20); EST GLOMERULAR FILTRATION RATE > 60 mL/min; GLUCOSE,RANDOM 449 mg/dL (74-109)
[2019-06-05] MEDS ORDERED: HUMULIN R 100 UNIT/ML VIAL SQ ONE (03:00)
== END 2019-06-05 04:30 | disposition home or self-care (01) ==
LOC: ER 01:43
DX: E11.65 Type 2 diabetes mellitus with hyperglycemia (principal); Z79.84 Long term (current) use of oral hypoglycemic drugs; I10 Essential (primary) hypertension
CPT/HCPCS: 36416; 80048; 82009; 82800; 82948; 83036; 96372; 99284

== ENCOUNTER 2019-06-23 08:40 | Day surgery (SDC) | payer BC ==
[~2019-06-23 08:40] MED LIST: ACETAMINOPHEN 1,000 MG/100 ML BTL IVPB ONE; FAMOTIDINE 20MG TABLET PO ONE; MECLIZINE 25 MG TABLET PO ONE; METOCLOPRAMIDE 10 MG TABLET PO ONE
[2019-06-23] MEDS ORDERED: ONDANSETRON HCL IV 4 MG/2 ML VIAL IVP ONE (08:41)
[2019-06-23] MEDS ORDERED: ESMOLOL HCL 100 MG/10 ML ML IVP ONE (08:41)
[2019-06-23] MEDS ORDERED: ROCURONIUM BROMIDE 50MG/5ML VIAL IV ONE (08:41)
[2019-06-23] MEDS ORDERED: SUGAMMADEX SODIUM 200 MG/2 ML VIAL IV ONE (08:41)
[2019-06-23] MEDS ORDERED: PROPOFOL 10 MG/ML VIAL IV ONE (08:41)
[2019-06-23] MEDS ORDERED: SEVOFLURANE 250 ML INH ONE (08:41)
[2019-06-23] MEDS ORDERED: SUCCINYLCHOLINE 20 MG/ML 10ML IVP ONE (08:41)
[2019-06-23] MEDS ORDERED: LIDOCAINE 2% MDV (20MG/ML) 20ML VIAL IV ONE (08:41)
[2019-06-23] MEDS ORDERED: FENTANYL PF 100MCG/2ML VIAL IV ONE (08:41)
[2019-06-23] MEDS ORDERED: PHENYLEPHRINE HCL 10 MG/ML VIAL IVP ONE (08:41)
[2019-06-23] MEDS ORDERED: MIDAZOLAM HCL 2MG/2ML VIAL IV ONE (08:41)
[2019-06-23] MEDS ORDERED: RINGERS SOLUTION,LACTATED 1,000 ML IV ONE ×2 (10:12→11:01)
[2019-06-23] MEDS ORDERED: BUPIVACAINE 0.25% W/EPI MPF 30ML VIAL SQ ONE (10:22)
[2019-06-23] MEDS: HYDROMORPHONE HCL 2 MG/ML VIAL IVP PRN ×2 (11:20→11:33)
[2019-06-23] MEDS ORDERED: ONDANSETRON HCL IV 4 MG/2 ML VIAL IVP PRN (11:27)
--- NOTE | 2019-06-24 06:01 | Operative Note ---
DATE OF SURGERY: 06/23/2019 SURGEON: Malachi Mortensen DO PREOPERATIVE DIAGNOSIS: Chronic cholecystitis. POSTOPERATIVE DIAGNOSIS: Chronic cholecystitis. OPERATION: Laparoscopic cholecystectomy. INDICATION: The patient is a 49-year-old female who presented with ongoing right subcostal postprandial pain. Imaging studies were consistent with cholelithiasis. We did discuss cholecystectomy versus medical management. She desired surgical intervention. Risks include but are not limited to bleeding, infection, ductal injury, possible conversion to open, postoperative bile leak. She understood this fully. PROCEDURE: Thereafter, consent was signed and questions answered. She was taken to the operating room and placed in a supine position. General anesthesia was administered per the department of anesthesia. The patient's abdomen was prepped and draped in the usual sterile fashion. Due to the patient's morbid obesity, I did have to go in a supraumbilical region. This area was anesthetized with a total of 4 mL of 0.25% Sensorcaine with epinephrine. A 2 cm supraumbilical incision was made. This was carried down bluntly to the anterior rectus fascia. This was incised. Stay sutures of 0 Vicryl were placed. Posterior rectus sheath was identified and incised. The peritoneal cavity was entered bluntly. At this time, a 10 mm blunt James port was placed. Adequate pneumoperitoneum was established. Under direct visualization, additional 5 mm epigastric and two 5 mm right subcostal ports were placed. I started with a dome-down technique right off the bat due to the patient's heavy liver. I did not really have excellent retraction starting off traditionally. This was taken down to Sherry's pouch. I did switch to traditional cephalad and lateral direction. Inferior dissection met up with the superior dissection freeing up the entire gallbladder. We only had 2 structures left attached; the cystic duct and cystic artery. Each one was doubly clipped and cut in a standard fashion. Gallbladder was then taken off through the umbilical port. Right upper quadrant was rechecked and found to be hemostatic. No bleeding. No bile leaking. No bowel injury noted. The patient was leveled out. The pneumoperitoneum was released. All ports were removed. The fascia was closed with 0 Vicryl in a [id number] fashion. The skin at all ports was closed with 4-0 Vicryl. The patient was taken to the recovery room in stable condition. FINDINGS AT THE TIME OF SURGERY: Chronic cholecystitis. MTDD
== END 2019-06-23 12:26 | disposition home or self-care (01) ==
LOC: SUR 08:40
PROVIDERS: ATTEND Surgery
DX: K80.10 Calculus of gallbladder with chronic cholecystitis without obstruction (principal); I10 Essential (primary) hypertension; E11.9 Type 2 diabetes mellitus without complications; E78.00 Pure hypercholesterolemia, unspecified; G62.9 Polyneuropathy, unspecified; E66.9 Obesity, unspecified; G47.33 Obstructive sleep apnea (adult) (pediatric)
CPT/HCPCS: 47562; 00790; 36416; 82948; J2405; J3010; J1170; J3490; J0330; J2370; J7120